=== PATIENT | male | born 1955 | race Caucasian/White ===

== ENCOUNTER 2017-04-09 21:24 | Emergency (ER) | payer BC ==
[~2017-04-09] VITALS: Ht 175.3 cm; Wt 93.0 kg
[~2017-04-09 21:24] MED LIST: DIOVAN80 MG PO; HCTZ/TRIAMTEREN1 CAP PO; INSULIN GL100 UNITS1 SC; KOMBIGLYZE XR 11 TE1 PO; METFORMIN500 MG PO; SALMETEROL-F28 PUFFS IN; ULTRAM50 MG PO
--- NOTE | 2017-04-09 21:46 | Emergency Room Report ---
History of Present Illness Time Seen by [id number] Presenting Problem in Triage Pt arrived:Walked Presenting Problem:C/O LACERATION TO LEFT PINKY FINGER WHILE CUTTING CORN Onset of symptoms date/time:04/09/17 or onset unknown for: Treatment Prior to Arrival: [facility] [employer] [facility] Provided by: Sepsis Risk Assessment: Temp: 98 B/P: 139/65 MAP: 89 Pulse: 77 Resp: 20 Recent fever? N Clinical Suspician of Infection? N Mental Status: 1 - Regular (Normal Baseline) Sepsis Risk:Low Sepsis RiskN Have you (or family members/close friends) recently traveled outside the [place]? N If Yes, where/when: Have you had exposure to infectious disease within the past month? N TB? Other? Specify: Source patient, RN notes reviewed, old records Exam Limitations no limitations Comment laceration rt fifth finger at pip jt crease on corn leaf tonight Cardiac Chest Pain Chest pain indicative of cardiac No Timing/Duration this evening Severity moderate ALLERGIES Coded Allergies: Penicillins (04/09/17) SHELLFISH (FOOD) (VOMITING 04/09/17) iodine (04/09/17) Home Medications Active Scripts Salmeterol 50/Fluticasone 250 (Advair 250-50 Diskus) 1 PUFFS IN BID #1 Ref 5 Prov: 08/30/14 Insulin Glargine, Recombinan (Insulin Glargine 3ML) 8 UNITS SC 1700 #1 ML Ref 6 Prov: 08/30/14 Reported Medications Valsartan (Diovan) 80 MG PO DAILY Hydrochlorothiazide W/Triamter (Triamterene-Hctz 37.5-25 MG Tb) 0.5 TAB PO DAILY SAXAGLIPTIN HCL/METFORMIN HCL (Kombiglyze XR 5-1,000 MG Tab) 1 TAB PO DAILY History Medical History General Angina: No MA: No Hypertension? Yes Hyperlipidemia? No CHF? No COPD? No Asthma? No Hernia? No CVA? No Seizures? No Diabetes? Yes Insulin Dependent: Yes Insulin Pump: No Home FSBS? No End Stage Renal Disease? No UTI? No Stones? No GB Disease: No Nephritic Syndrome? No Asplenia? No Hepatitis? No Sickle Cell Disease? No Cataracts? No Glaucoma? No MRSA? No TB? No Cancer? No Immunization Hx DT/Tetanus 1-4 Years Ago Flu 5925-1158 Flu Season Pneumonia Refuses Surgical Hx Previous Surgery?Y WISDOM TEETH EXTRACTION Family History Family Hx Diabetes Yes CAD No Hypertension Yes Hyperlipidemia No Cancer No TB No Social History Smoking Hx Smoker: Never Smoker Tobacco: No Alcohol Alcohol: No Drugs none Review of Systems All Other Systems Reviewed and Negative Constitutional denies fever Eyes denies drainage ENT denies: ear discharge, epistaxis, throat pain. Respiratory denies cough, denies shortness of breath, denies wheezing Cardiovascular denies chest pain, denies palpitations, denies syncope Gastrointestinal denies abdominal pain, denies diarrhea, denies vomiting Genitourinary denies: dysuria, frequency, hesitancy, hematuria. Musculoskeletal denies back pain, denies joint pain, denies joint swelling, denies neck pain Skin see HPI, denies rash, other Psychiatric/Neurological denies headache, denies seizure Physical Exam Vital Signs Vital Signs Date Time Temp Pulse Resp B/P Pulse O2 O2 Flow FiO2 Ox Delivery Rate 04/09 2130 98.0 77 20 139/65 95 - WBC >12,000 or <4,000 or 10% bands? 2 or more SIRS Criteria Met? B/P:139/65 MAP:89 Creatinine >2.0? UA output<0.5ml/kg/hr for 2 hrs? Platelet count >100,000? Lactate >2.0mmol/1? INR >1.2 or PTT > than 60 sec? Evidence of Organ Dysfunction? Provider documented clinical suspician of infection? N Sepsis Criteria Count: 1N Sepsis Risk: Low Sepsis RiskN General Appearance no apparent distress Eye Exam - bilateral eye PERRL, bilateral eye EOMI Ear, Nose, Throat normal ENT inspection Neck supple Respiratory Status No: respiratory distress. 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 No Results/Orders Current Medication Orders Sig/Aditya Start time Last Medication Dose Route Stop Time Status Admin Lidocaine HCl 0 .STK-MED ONE 04/09 2148 DC .ROUTE Procedures Laceration/Wound Repair Laceration/Wound Repair Risks/benefits discussed with pt/guardian? Yes Tetanus status up to date Wound Location finger(s) Wound Length (cm) 1 Wound's Depth, Shape sucutaneous tissue Wound Explored no FB identified Risk of retained FB explained to pt/guardian? Yes Irrigated w/ Saline (ccs) 0 Wound Prep Hibiclens, Saline Anesthesia 1% Lidocaine, Digital block Volume Anesthetic (ccs) 3 Wound Debrided none Wound Repaired With sutures Suture Size/Type 4:0, Ethilon Layer Closure No Total Number Sutures 5 Sterile Dressing Applied Yes Splint Applied No Sling Applied No Departure Departure Time of Disposition 2158 Disposition DC Home or Self Care(routine) Clinical Impression Primary Impression: Finger laceration Qualifiers: Encounter type: initial encounter Finger: little finger Damage to nail status: unspecified Foreign body presence: without foreign body Laterality: right Qualified Code: S61.216A - Laceration without foreign body of right little finger without damage to nail, initial encounter Condition STABLE Referrals Keron Field MD (Family) Patient Instructions DI for Laceration Repair Additional Instructions sutures out 10 days and recheck if any problems Discharge Counseling Counseled pt/family regarding diagnosis, follow up needs ED Critical Care Critical Care No at [id number]
[2017-04-09 22:28] VITALS: BP 139/65
== END 2017-04-09 22:30 | disposition home or self-care (01) ==
LOC: ER 21:24
PROC: 0HQGXZZ Repair Left Hand Skin, External Approach (ICD-10-PCS; principal; 2017-04-09)
DX: S61.216A Laceration without foreign body of right little finger without damage to nail, initial encounter (principal); I10 Essential (primary) hypertension; Z79.899 Other long term (current) drug therapy; E11.9 Type 2 diabetes mellitus without complications; Z79.4 Long term (current) use of insulin; W26.9XXA Contact with unspecified sharp object(s), initial encounter; Y92.009 Unspecified place in unspecified non-institutional (private) residence as the place of occurrence of the external cause